=== PATIENT | female | born 2000 | race Two or more races ===

== ENCOUNTER 2019-02-05 09:32 | Emergency (ER) | payer MEDICAID, OTHER ==
[~2019-02-05] VITALS: Ht 160 cm; Wt 64.0 kg
[2019-02-05] MEDS ORDERED: IBUPROFEN 400MG TABLET PO ONE (11:45)
[2019-02-05 12:25] VITALS: BP 110/64
== END 2019-02-05 13:00 | disposition home or self-care (01) ==
LOC: ER 09:32
DX: S80.02XA Contusion of left knee, initial encounter (principal); S10.81XA Abrasion of other specified part of neck, initial encounter; V49.59XA Passenger injured in collision with other motor vehicles in traffic accident, initial encounter; Y93.89 Activity, other specified; Y92.89 Other specified places as the place of occurrence of the external cause; Y99.8 Other external cause status; Z88.0 Allergy status to penicillin
CPT/HCPCS: 81025; 99283